=== PATIENT | male | born 1975 | race Caucasian/White ===

== ENCOUNTER 2017-09-20 13:15 | Day surgery (SDC) | payer OTHER ==
[2017-09-20] MEDS ORDERED: XYLOCAINE-MPF 1% ONE (13:33)
[2017-09-20] MEDS ORDERED: KENALOG INJ 40 MG IM ONE (13:34)
[2017-09-20] MEDS ORDERED: MARCAINE 0.25% INJ ONE (13:34)
--- NOTE | 2017-09-20 13:34 | DR.UPDATE ---
H&P Update History and Physical Update: History and Physical reviewed and patient examined. Changes noted: NO Yes with the following:agree with H&P from Dr Aguilar. will perform steroid injections bilateral hips under flouro.
[2017-09-20 14:44] VITALS: BP 135/74
== END 2017-09-20 14:18 | disposition home or self-care (01) | DRG 554 ==
LOC: SURG1 13:15
PROVIDERS: ATTEND Specialist
PROC: 3E0U33Z Introduction of Anti-inflammatory into Joints, Percutaneous Approach (ICD-10-PCS; principal; 2017-09-20 13:00)
PROC: 3E0U3BZ Introduction of Anesthetic Agent into Joints, Percutaneous Approach (ICD-10-PCS; principal; 2017-09-20 13:00)
DX: M16.0 Bilateral primary osteoarthritis of hip (principal)
CPT/HCPCS: 20610; 76000; 77002; S0020; J3301

== ENCOUNTER → 2017-10-12 | Outpatient (CLI) | payer OTHER ==
[2017-09-20 14:44] VITALS: BP 135/74
--- NOTE | 2017-10-12 14:54 | MRI ---
MR right hip without contrast Indication: Right hip pain and osteoarthritis. Popping. Comparison: None available. Technique: Multiplanar multi sequence imaging through the right hip without contrast. All pelvis imag ing obtained. Findings: Bone marrow signal is normal with mild SI joint, symphysis pubis and lumbar spine disc dege nerative change/facet arthropathy noted. Visualized abdominopelvic soft tissues demonstrate no unexpe cted abnormality. Vascular flow voids appear normal. Neurovascular structures are intact. There is bi lateral mild to moderate hip joint degenerative change slightly more pronounced on the right. Mild ri ght greater trochanteric bursitis noted. No fracture seen. There is gluteus minimus and medius tendin osis on the right. Minimal hamstring tendinosis noted. No periarticular fluid collections seen. There is tearing and fraying of the anterior superior right acetabular labrum with subchondral cyst s een at the superior acetabulum. Small paralabral cyst suspected anteriorly on coronal image 9, likely corresponding to the tear. Impression: 1. Right greater than left hip joint degenerative change with tearing of the right anterior superior acetabular labrum and tiny paralabral cyst forming. 2. Subchondral edema at the right superior acetabulum from subchondral cyst formation is also noted. 3. Spine and pelvis degenerative changes as above. 4. Mild right greater trochanteric bursitis and gluteus medius/minimus tendinosis Reported By:
== END ==
LOC: RAD 10:02
PROVIDERS: ATTEND Specialist
DX: M16.0 Bilateral primary osteoarthritis of hip (principal)
CPT/HCPCS: 73721